=== PATIENT | male | born 1985 | race Caucasian/White ===

== ENCOUNTER → 2021-02-16 | Outpatient (CLI) | payer OTHER ==
--- NOTE | 2021-02-16 13:18 | Diagnostic Imaging Report ---
INDICATION: Chronic sinusitis. TECHNIQUE: Multiple contiguous axial images were obtained through the sinuses without the use of intravenous contrast. Coronal and sagittal reformations were then performed. Auto Exposure Controls were utilized during the CT exam to meet ALARA standards for radiation dose reduction. There is no previous study for comparison. FINDINGS: There is complete opacification of the frontal sinuses bilaterally. There is some bony sclerosis indicating some degree of chronicity. There is also diffuse opacification of the ethmoid air cells. There is opacity and bony sclerosis of the sphenoid sinuses and maxillary sinuses as well. Orbital contents are unremarkable. IMPRESSION: Extensive pansinusitis with opacification throughout the sinuses as above. There is underlying bony thickening and sclerosis of the sinus montalvo, which may indicate chronicity of this process. Correlate with clinical findings. Dictated by: Dictated on workstation # [id number]
== END ==
LOC: RAD 11:23
PROVIDERS: ATTEND Otolaryngology Otolaryngology/Facial Plastic Surgery
DX: J32.9 Chronic sinusitis, unspecified (principal); J33.9 Nasal polyp, unspecified; J34.89 Other specified disorders of nose and nasal sinuses
CPT/HCPCS: 70486